=== PATIENT | female | born 1970 | race Caucasian/White ===

== ENCOUNTER 2017-01-06 17:57 | Observation (INO) ==
[2017-01-06] MEDS ORDERED: SODIUM CHLORIDE 0.9% 1,000 ML IV STA (18:47)
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
[2017-01-06 19:07] LABS: Basophils # 0.1 10*3/uL (0.0-0.2); Basophils % 0.2 % (0.0-0.8); Eosinophils # 0.4 10*3/uL (0.0-0.87); Eosinophils % 1.5 % (0.00-10.9); Hematocrit 29.7 VOL% (35.7-47.0); Hemoglobin 9.9 GM/DL (12.0-16.0); Immature Granulocytes Absolute 0.25 #; Lymphocytes # 2.4 10*3/uL (1.4-4.0); Lymphocytes % 9.7 % (21.3-54.2); Mean Corpuscular HGB Conc 33.3 GM/DL (32-36); Mean Corpuscular Hemoglobin 30 PG (27-34); Mean Corpuscular Volume 90.5 FL (87-102); Mean Platelet Volume 9.1 FL (9.6-12.0); Monocytes # 1.7 10*3/uL (0.11-0.8); Monocytes % 7.1 % (1.7-12.7); NRBC # 0.02 10*3/uL; Neutrophils # 19.8 10*3/uL (1.4-7.4); Neutrophils % 80.5 % (38.7-73.9); Platelet Count 457 T/CUMM (130-400); Red Blood Count 3.28 MC/CUMM (3.8-5.5); Red Cell Distribution Width 14.3 % (9.3-17.3); White Blood Count 24.5 T/CUMM (4-12)
[2017-01-06 19:13] LABS: Apearance,Urine CLEAR (Clear); Bilirubin,Urine Negative (Negative); Blood, Urine Negative (Negative); Glucose,Urine (UA) Negative (Negative); Ketones,Urine Negative (Negative); Mucus,Urine Occasional /LPF (Occasional); Nitrite,Urine Negative (Negative); Protein,Urine Negative; RBC,Urine 1 /HPF (0-4); Squamous Epithelial Cell,Urine Occasional /HPF (0-10); Urine Color Yellow (Yellow); Urine Specific Gravity 1.012 (1.001-1.035); Urine Urobilinogen < 2.0 EU/DL (0.2-1.0); WBC,Urine 1 /HPF (0-6)
[2017-01-06 19:24] LABS: Barbiturates Screen,Urine Negative (Negative); Benzodiazepines Screen,Urine Negative (Negative); Cannabinoid Screen,Urine Negative (Negative); Opiate Screen,Urine Negative (Negative); Phencyclidine Screen,Urine Negative (Negative)
[2017-01-06 19:34] LABS: Alanine Aminotransferase 78 U/L (13-56); Albumin 2.3 G/DL (3.4-5.0); Alkaline Phosphatase 423 U/L (45-117); Aspartate Amino Transferase 50 U/L (0-37); Bilirubin,Total < 0.39 MG/DL (0.2-1.0); Blood Urea Nitrogen 8 MG/DL (7-18); Glucose 86 MG/DL (74-106); Magnesium 1.6 MG/DL (1.8-2.4); Osmolality,Calculated 273.5 MOS/KG (273-304); Potassium 3.7 MMOL/L (3.5-5.1); Sodium 139 MMOL/L (136-145)
--- NOTE | 2017-01-06 19:40 | CT Report ---
History is left sided weakness There is a mild anomaly frontal atrophy. There is mild chronic subcortical ischemia in the right frontoparietal region. No acute intracranial hemorrhage or mass effect is seen No acute cortical stroke is seen Impression: 1. Mild predominantly frontal atrophy 2. Chronic subcortical ischemia in the right frontoparietal region The CT exam was performed using one or more of the following dose reduction techniques: Automated exposure control, adjustment of the mA and/or kV according to patient size, or use of iterative reconstruction technique. PROCEDURE INTERPRETED AT [facility] DEPARTMENT OF RADIOLOGY Final Report Signed by: Dr. Kelly Calixto
--- NOTE | 2017-01-06 19:46 | XRay Report ---
Chest, 2 views History is congestion and short of breath The heart is at the upper range normal in size Increased density over the right chest likely related to rotation and overlying soft tissue asymmetry. No consolidated infiltrate is seen. Presumed skin fold overlies the left chest Impression: Borderline heart size PROCEDURE INTERPRETED AT [facility] DEPARTMENT OF RADIOLOGY Final Report Signed by: Dr. Kelly Calixto
--- NOTE | 2017-01-06 19:48 | XRay Report ---
History is abdominal pain There is mildly increased fecal material throughout the colon. Minimal small bowel air present without small bowel dilatation or organomegaly seen Impression: Mildly increased stool throughout the colon PROCEDURE INTERPRETED AT [facility] DEPARTMENT OF RADIOLOGY Final Report Signed by: Dr. Kelly Calixto
[2017-01-06 21:44] LABS: Lymphocytes 15 % (20-55); Platelet Estimate Normal; Segmented Neutrophils 81 % (50-85); Total Cells Counted 100
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
[2017-01-06] MEDS ORDERED: DEXTROSE 50% 25 GM/50 ML VIAL IV PRN (23:03)
[2017-01-06] MEDS ORDERED: GLUCAGON 1 MG VIAL IM PRN (23:03)
[2017-01-06] MEDS: SODIUM CHLORIDE 0.9% 1,000 ML IV SCH (23:14)
[2017-01-06 23:40] LABS: Free T4 (Free Thyroxine) 1.23 NG/DL (0.76-1.46); Thyroid Stimulating Hormone 1.51 uIU/ml (0.358-3.74)
[2017-01-07 00:22] LABS: HIV Antigen/Antibody Result Nonreactive (Nonreactive)
[2017-01-07] MEDS: DIVALPROEX 500 MG TABLET PO SCH ×2 (01:02→09:20)
[2017-01-07] MEDS: traZODone 50 MG TABLET PO SCH ×2 (03:13→22:10)
--- NOTE | 2017-01-07 06:10 | CT Report ---
Referring physician: Jareth Lucero MD EXAM: CT abdomen and pelvis with contrast DATE: January 07, 2017 COMPARISON: None REASON: Leukocytosis, generalized abdominal pain, abnormal liver enzymes Preliminary report was provided by [facility]. TECHNIQUE: Axial images of the abdomen and pelvis were obtained after administration of 100 cc of Omnipaque 350 IV contrast. Coronal and sagittal reformatted images were also provided. Total DLP is 985.8 mGy*cm. FINDINGS: Lower thorax: The visualized lower lung zones are clear. ABDOMEN: Liver: There are a few tiny subcentimeter hypodensities within the right hepatic lobe. They likely represent cysts but are too small to well characterize. Gallbladder and bile ducts: The gallbladder is unremarkable. No biliary duct dilatation is present. Pancreas: Unremarkable. Spleen: Unremarkable. Adrenals: The right adrenal gland is unremarkable. There is a 1.3 cm left adrenal nodule which is difficult to characterize. Follow-up is recommended to confirm a benign process. Kidneys and ureters: No hydronephrosis is present. There is a subcentimeter hypodensity at the upper pole of the right kidney on image 50. It is too small to well characterize but may represent a cyst. The ureters are unremarkable as visualized. PELVIS: Bladder: Unremarkable. Reproductive: Unremarkable as visualized. ABDOMEN AND PELVIS: Bowel: There is no evidence of bowel obstruction. However, there is prominent stool within the colon, which may represent constipation. Appendix: The appendix is unremarkable. Vasculature: The abdominal aorta is normal in size. There is mild calcified plaque at the arteries. Peritoneum/retroperitoneum: No free air or ascites is seen. Lymph nodes: There are a few upper normal size mesenteric lymph nodes within the right lower quadrant. One of these lymph nodes measures 0.7 cm in short axis diameter on image 87. They are nonspecific but may be reactive. Abdominal/pelvic wall: Unremarkable. Bones: There is degenerative change at L5-S1 with disc space narrowing. No acute osseous process is seen. IMPRESSION: 1. There is no evidence of bowel obstruction. However, there is prominent stool within the colon, which could represent constipation. 2. Nonspecific 1.3 cm left adrenal nodule. Follow-up would be helpful to confirm a benign process. 3. There are a few upper normal size mesenteric lymph nodes within the right lower quadrant. They are nonspecific but may be reactive. 4. Probable tiny hepatic and right renal cysts, too small to well characterize. The CT exam was performed using one or more of the following dose reduction techniques: Automated exposure control and adjustment of the mA and/or kV according to patient size. PROCEDURE INTERPRETED AT [facility] DEPARTMENT OF RADIOLOGY Final Report Signed by: Dr. Vicki Schwartz
[2017-01-07] MEDS ORDERED: GLIMEPIRIDE 2 MG TABLET PO SCH (08:00)
--- NOTE | 2017-01-07 12:12 | Hospitalist Progress Note ---
<Lisa Trotter - Last Filed: 01/07/17 12:09> Assessment and Plan (1) Abdominal pain Status: Acute Assessment and plan: CT of the abdomen and pelvis reported no evidence of bowel obstruction however there was a prominent amount of stool noted within the colon which suggested constipation. In addition; there was the presence of a 1.3 cm left adrenal nodule noted, a few upper normal-sized mesenteric lymph nodes within the right upper quadrant and probable tiny hepatic and right renal cyst. We will start a bowel regimen; MiraLAX 17 g daily, lactulose 30 mL twice daily, and milk of mag 30 cc by mouth as needed. Current Visit: Yes (2) Abnormal liver enzymes Status: Acute Assessment and plan: Liver enzymes were elevated at the time of admission; however no labs are available for comparison. Will order stat liver enzymes now and in a.m. Current Visit: Yes (3) Leukocytosis Status: Acute Assessment and plan: Blood cultures were obtained at the time of admission; results are pending. WBCs remain elevated at 24.5. Echocardiogram has been ordered to assess for endocarditis. HIV panel was benign. Empiric antibiotics have been started. We will continue as previously ordered however we will consult infectious disease to evaluate. In addition we will also obtain hepatitis panel for review. Current Visit: Yes Hospitalist: Subjective Interval history: Patient seen and examined; chart reviewed. Remains afebrile. Blood cultures are still pending. WBCs remain grossly elevated at 24.5 this a.m. Exam - Constitutional Vitals: Period Temp Pulse Resp BP Sys/Vail Pulse Ox Last 24 Hr 98 F-98.7 F 95-126 16-20 118-143/71-91 94-100 General appearance: normal weight, no acute distress - Head Head exam: Present: normal inspection, normocephalic, atraumatic - Eye Eye exam: Present: EOMI Pupils: Present: CARLI, normal accommodation - ENT ENT exam: Present: normal exam, normal external ear exam, normal oropharynx - Neck Neck exam: Present: normal inspection. Absent: lymphadenopathy, meningismus, tenderness, thyromegaly - Respiratory Respiratory exam: Present: clear to auscultation bilaterally. Absent: rales, rhonchi, stridor, wheezes - Cardiovascular Cardiovascular exam: Present: regular rate and rhythm. Absent: carotid bruit, diastolic murmur, gallop, JVD, rubs, systolic murmur - GI/Abdominal GI/Abdominal exam: Present: normal bowel sounds, soft - Extremities Exam Extremities exam: Present: normal inspection, normal capillary refill, full ROM , edema - Back Exam Back exam: Present: normal inspection - Neurological Exam Neurological exam: Present: alert, oriented X3, CN II-XII intact - Psychiatric Psychiatric exam: Present: agitated, anxious, flat affect - Skin Skin exam: Present: normal color, warm, dry Results - Labs CBC & BMP: 01/06/17 18:56 01/06/17 18:56 Lab Results: I have reviewed the past 24 hour labs Quality Measures - Stroke Onset of Symptoms Date: 12/30/16 <Sanjana Anderson - Last Filed: 01/07/17 16:48> Hospitalist: Subjective Interval history: Patient seen and examined. She had a bowel movement, and she states that she feels much better. She denies any n/v/fevers/chills. Active Issues: 1. Acute abdominal pain: likely 2nd to constipation. CT showed fecal retention. Given her LFTs and severe leukocytosis, there's a concern for infection. ID was consulted, and no antibiotics were recommended as long as she remains afebrile. Appreciate help. Will monitor. 2. Leukocytosis: significant but improving; afebrile; monitor; may be 2nd to stress reaction from constipation. 3. Elevated LFTs: mild improvement; will give IVFs and continue to monitor; if no improvement on tomorrow, will consult GI 4. Bipolar disorder/mental illness: will go ahead and stop VPA since it can cause hyperammonemia in the setting of liver dysfunction. 5. Heart murmur: await results of echo 6. DM: sugars controlled Exam - Constitutional Vitals: Period Temp Pulse Resp BP Sys/Vail Pulse Ox Last 24 Hr 98 F-98.7 F 95-126 16-20 118-143/71-91 94-100 Results - Labs CBC & BMP: 01/07/17 12:33 01/07/17 12:33
[2017-01-07] MEDS ORDERED: MAGNESIUM HYDROXIDE SUSP 30 ML UDCUP PO PRN (12:22)
[2017-01-07 13:00] LABS: Basophils % 0.2 % (0.0-0.8); Eosinophils # 0.2 10*3/uL (0.0-0.87); Eosinophils % 1.2 % (0.00-10.9); Hematocrit 29.8 VOL% (35.7-47.0); Lymphocytes # 1.9 10*3/uL (1.4-4.0); Lymphocytes % 9.4 % (21.3-54.2); Mean Corpuscular HGB Conc 33.6 GM/DL (32-36); Mean Corpuscular Hemoglobin 30 PG (27-34); Mean Corpuscular Volume 90.3 FL (87-102); Mean Platelet Volume 9.4 FL (9.6-12.0); Monocytes # 1.5 10*3/uL (0.11-0.8); Monocytes % 7.2 % (1.7-12.7); Neutrophils # 16.5 10*3/uL (1.4-7.4); Platelet Count 450 T/CUMM (130-400); Red Cell Distribution Width 14.5 % (9.3-17.3); White Blood Count 20.3 T/CUMM (4-12)
[2017-01-07] MEDS: LACTULOSE 20 GM/30 ML UDCUP PO SCH ×2 (13:08→22:08)
[2017-01-07] MEDS: POLYETHYLENE GLYCOL POWDER 17 GM PACK PO SCH (13:08)
[2017-01-07 13:27] LABS: Alanine Aminotransferase 72 U/L (13-56); Albumin 2.2 G/DL (3.4-5.0); Alkaline Phosphatase 411 U/L (45-117); Aspartate Amino Transferase 37 U/L (0-37); Bilirubin,Direct < 0.10 MG/DL (0.0-0.20); Bilirubin,Indirect 0.3 MG/DL (0.0-1.0); Bilirubin,Total < 0.39 MG/DL (0.2-1.0); Blood Urea Nitrogen 5 MG/DL (7-18); Calcium 8.2 MG/DL (8.5-10.1); Glucose 89 MG/DL (74-106); Magnesium 1.6 MG/DL (1.8-2.4); Osmolality,Calculated 274.4 MOS/KG (273-304); Phosphorous 3.1 MG/DL (2.5-4.9); Potassium 3.8 MMOL/L (3.5-5.1); Sodium 140 MMOL/L (136-145); Total Protein 5.9 G/DL (6.4-8.3)
[2017-01-07 14:17] LABS: Band Neutrophils 3 % (0-10); Burr Cells Few; Eosinophils 1 % (0-10); Lymphocytes 9 % (20-55); Ovalocytes Few; Platelet Estimate Increased; Poikilocytosis 1+; Segmented Neutrophils 77 % (50-85); Tear Drop Cells Few; Total Cells Counted 100
[2017-01-07 14:18] LABS: Hepatitis A Ab IgM Result Negative (Negative); Hepatitis B Core IgM Quant 0.23 Index; Hepatitis B Core IgM Result Negative (Negative); Hepatitis B Surface Ag Quant < 0.10 Index; Hepatitis B Surface Ag Result Negative (Negative); Hepatitis C Virus Ab Quant 0.02 Index; Hepatitis C Virus Ab Result Negative (Negative)
[2017-01-07] MEDS ORDERED: SODIUM PHOSPHATE ENEMA 133 ML BOTTLE RECTAL ONE (15:05)
--- NOTE | 2017-01-07 15:48 | Infectious Disease Consult ---
Assessment and Plan (1) Abdominal pain Status: Acute Assessment and plan: Possibly related to constipation. No acute pathology noted on imaging studies. Monitor. Current Visit: Yes (2) Bipolar disorder Status: Acute Current Visit: Yes (3) Leukocytosis Status: Acute Assessment and plan: Quite significant leukocytosis already improved today. No fever or obvious focus of infection. Recommendations: I agree with monitoring the patient off antibiotic therapy. If she spikes fever then we can start empirically ceftriaxone and vancomycin. Thank you very much for the consult. Will follow. Current Visit: Yes History of Present Illness Chief complaint: Leukocytosis History of present illness: Patient is a very poor historian probably because of her underlying mental illness. Ms. Kennedy is a 46 year old female who is living in a [facility] due to her mental illness. She came to the hospital because of abdominal pain present for several days. She says she has been constipated and has not moved her bowels in several weeks. I am not sure how reliable her history is. She has not had fever all other constitutional symptoms just generalized weakness which the nurses say is so severe that she can barely go to the bathroom without falling she needs assistance going to the bathroom. She was noted to have severe leukocytosis on presentation and I am asked to assist with management. Patient denies cough and shortness of breath, no vomiting only GI symptom is constipation. No dysuria or increased urinary frequency or hematuria. Home Medications Medication Instructions Recorded Confirmed Type Unable To Obtain [Unable to Obtain] 01/07/17 01/07/17 History Allergies Allergy/AdvReac Type Severity Reaction Status Date / Time codeine Allergy Unknown/Unable Verified 01/06/17 23:20 to obtain acetaminophen [From Vicodin] AdvReac ITCHING Verified 01/06/17 18:22 hydrocodone [From Vicodin] AdvReac ITCHING Verified 01/06/17 18:22 12 point system: reviewed and no additional remarkable complaints except as stated (Per HPI) Medical,Surgical,& Family Hx - Medical History Psychological: History of: Psychiatric Problems Neurology: History of: Peripheral Neuropathy Endocrine: History of: Diabetes Mellitus (NIDDM) - Surgical History Reproductive Surgeries: Surgical HX of;: Gynecologic Surgery (reports x 1) - Family History Family History: Reports;: Family Cancer (father), Family Stroke (mother and father) - Social History Smoking Status: Current some day smoker Frequency of Alcohol Use: None Type of Drug Use: None Infectious Disease Exam H&P - Constitutional Vitals: Vital Signs Temp Pulse Resp BP Pulse Ox 98.2 F 96 H 18 125/78 96 01/07/17 11:06 01/07/17 11:06 01/07/17 11:06 01/07/17 11:06 01/07/17 11:06 Intake and Output 01/06/17 01/07/17 01/07/17 23:59 07:59 15:59 Intake Total 360 / 360 1200 / 1200 Balance 360 / 360 1200 / 1200 Intake: Oral 360 / 360 1200 / 1200 Other: Voiding Method Toilet # Voids 2 5 # Bowel Movements 0 Weight 76.067 kg Exam: General: Patient chronically ill-appearing but in no acute distress, her speech is very slow HEENT: Mucous membranes pink and moist, anicteric acyanotic, CARLI, no oropharyngeal exudates Neck: Supple, no thyroid gland enlargement, no lymphadenopathy Respiratory system: Breath sounds vesicular, no crepitations or wheezes Cardiovascular: Normal S1 and S2, no murmurs appreciated Abdomen: Normal bowel sounds, very soft, mild generalized tenderness without guarding or rebound, no organomegaly or mass Genitourinary: No suprapubic pain or bladder distention Extremities: no edema Skin: No rash Reports - Labs CBC & BMP: 01/07/17 12:33 01/07/17 12:33 Labs: Laboratory Results - last 24 hr 01/06/17 01/06/17 01/06/17 18:56 18:56 18:56 WBC 24.5 H RBC 3.28 L Hgb 9.9 L Hct 29.7 L MCV 90.5 MCH 30 MCHC 33.3 RDW 14.3 Plt Count 457 H MPV 9.1 L Neut % (Auto) 80.5 H Lymph % (Auto) 9.7 L [place] % (Auto) 7.1 Eos % (Auto) 1.5 Baso % (Auto) 0.2 Neut # (Auto) 19.8 H Lymph # (Auto) 2.4 [place] # (Auto) 1.7 H Eos # (Auto) 0.4 Baso # (Auto) 0.1 Total Counted 100 Immature Gran % 1.0 Nucleated RBC % 0.1 Immature Gran # 0.25 Segmented Neutrophils 81 Band Neutrophils Lymphocytes 15 L Monocytes 4 Eosinophils Nucleated RBCs # 0.02 Platelet Estimate Normal Poikilocytosis Tear Drop Cells Ovalocytes Kristi Cells ESR Westergren Sodium Potassium Chloride Carbon Dioxide Anion Gap BUN Creatinine GFR Calculation BUN/Creatinine Ratio Glucose POC Glucose Calculated Osmolality Calcium Phosphorus Magnesium Total Bilirubin Direct Bilirubin Indirect Bilirubin AST ALT Alkaline Phosphatase Total Protein Albumin Globulin Albumin/Globulin Ratio Amylase 18 L Lipase Free T4 TSH 3rd Generation Urine Color Yellow Urine Appearance Clear Urine pH 5.0 Ur Specific Pierre 1.012 Urine Protein Negative Urine Glucose (UA) Negative Urine Ketones Negative Urine Blood Negative Urine Nitrate Negative Urine Bilirubin Negative Urine Urobilinogen < 2.0 H Urine Leukocytes Negative Urine RBC 1 Urine WBC 1 Ur Squamous Epith Cells Occasional Urine Mucus Occasional Urine Yeast (Budding) Occasional Ur Culture Indicated? Not indicated Urine Test Negative Urine Opiates Screen Ur Barbiturates Screen Valproic Acid Ur Phencyclidine Scrn U Amphetamine/Methamph U Benzodiazepines Scrn U Cocaine Metab Screen U Cannabinoids Screen Serum Alcohol Treponema pallidum IgG Hepatitis A IgM Ab Hep Bs Antigen Hep B Core IgM Ab Hepatitis C Antibody HIV 1&2 Antigen & Ab 01/06/17 01/06/17 01/06/17 18:56 18:56 18:56 WBC RBC Hgb Hct MCV MCH MCHC RDW Plt Count MPV Neut % (Auto) Lymph % (Auto) [place] % (Auto) Eos % (Auto) Baso % (Auto) Neut # (Auto) Lymph # (Auto) [place] # (Auto) Eos # (Auto) Baso # (Auto) Total Counted Immature Gran % Nucleated RBC % Immature Gran # Segmented Neutrophils Band Neutrophils Lymphocytes Monocytes Eosinophils Nucleated RBCs # Platelet Estimate Poikilocytosis Tear Drop Cells Ovalocytes Weed Cells ESR Westergren Sodium 139 Potassium 3.7 Chloride 104 Carbon Dioxide 26 Anion Gap 12.7 BUN 8 Creatinine 0.50 L GFR Calculation 0 BUN/Creatinine Ratio 16.00 Glucose 86 POC Glucose Calculated Osmolality 273.5 Calcium 8.0 L Phosphorus Magnesium 1.6 L Total Bilirubin < 0.39 Direct Bilirubin Indirect Bilirubin AST 50 H ALT 78 H Alkaline Phosphatase 423 H Total Protein 6.0 L Albumin 2.3 L Globulin 3.7 H Albumin/Globulin Ratio 0.6 L Amylase Lipase 109.0 Free T4 TSH 3rd Generation Urine Color Urine Appearance Urine pH Ur Specific Pierre Urine Protein Urine Glucose (UA) Urine Ketones Urine Blood Urine Nitrate Urine Bilirubin Urine Urobilinogen Urine Leukocytes Urine RBC Urine WBC Ur Squamous Epith Cells Urine Mucus Urine Yeast (Budding) Ur Culture Indicated? Urine Test Urine Opiates Screen Negative Ur Barbiturates Screen Negative Valproic Acid Ur Phencyclidine Scrn Negative U Amphetamine/Methamph Negative U Benzodiazepines Scrn Negative U Cocaine Metab Screen Negative U Cannabinoids Screen Negative Serum Alcohol < 15 L Treponema pallidum IgG Nonreactive Hepatitis A IgM Ab Hep Bs Antigen Hep B Core IgM Ab Hepatitis C Antibody HIV 1&2 Antigen & Ab 01/06/17 01/06/17 01/07/17 18:56 18:56 00:30 WBC RBC Hgb Hct MCV MCH MCHC RDW Plt Count MPV Neut % (Auto) Lymph % (Auto) [place] % (Auto) Eos % (Auto) Baso % (Auto) Neut # (Auto) Lymph # (Auto) [place] # (Auto) Eos # (Auto) Baso # (Auto) Total Counted Immature Gran % Nucleated RBC % Immature Gran # Segmented Neutrophils Band Neutrophils Lymphocytes Monocytes Eosinophils Nucleated RBCs # Platelet Estimate Poikilocytosis Tear Drop Cells Ovalocytes Kristi Cells ESR Westergren 99 H Sodium Potassium Chloride Carbon Dioxide Anion Gap BUN Creatinine GFR Calculation BUN/Creatinine Ratio Glucose POC Glucose Calculated Osmolality Calcium Phosphorus Magnesium Total Bilirubin Direct Bilirubin Indirect Bilirubin AST ALT Alkaline Phosphatase Total Protein Albumin Globulin Albumin/Globulin Ratio Amylase Lipase Free T4 1.23 TSH 3rd Generation 1.510 Urine Color Urine Appearance Urine pH Ur Specific Pierre Urine Protein Urine Glucose (UA) Urine Ketones Urine Blood Urine Nitrate Urine Bilirubin Urine Urobilinogen Urine Leukocytes Urine RBC Urine WBC Ur Squamous Epith Cells Urine Mucus Urine Yeast (Budding) Ur Culture Indicated? Urine Test Urine Opiates Screen Ur Barbiturates Screen Valproic Acid Ur Phencyclidine Scrn U Amphetamine/Methamph U Benzodiazepines Scrn U Cocaine Metab Screen U Cannabinoids Screen Serum Alcohol Treponema pallidum IgG Hepatitis A IgM Ab Hep Bs Antigen Hep B Core IgM Ab Hepatitis C Antibody HIV 1&2 Antigen & Ab Nonreactive 01/07/17 01/07/17 01/07/17 08:43 10:44 12:33 WBC 20.3 H RBC 3.30 L Hgb 10.0 L Hct 29.8 L MCV 90.3 MCH 30 MCHC 33.6 RDW 14.5 Plt Count 450 H MPV 9.4 L Neut % (Auto) 81.0 H Lymph % (Auto) 9.4 L [place] % (Auto) 7.2 Eos % (Auto) 1.2 Baso % (Auto) 0.2 Neut # (Auto) 16.5 H Lymph # (Auto) 1.9 [place] # (Auto) 1.5 H Eos # (Auto) 0.2 Baso # (Auto) 0.0 Total Counted 100 Immature Gran % 1.0 Nucleated RBC % 0.0 Immature Gran # 0.20 Segmented Neutrophils 77 Band Neutrophils 3 Lymphocytes 9 L Monocytes 10 Eosinophils 1 Nucleated RBCs # 0.00 Platelet Estimate Increased Poikilocytosis 1+ Tear Drop Cells Few Ovalocytes Few Kristi Cells Few ESR Wester[place] Sodium Potassium Chloride Carbon Dioxide Anion Gap BUN Creatinine GFR Calculation BUN/Creatinine Ratio Glucose POC Glucose 121 H 90 Calculated Osmolality Calcium Phosphorus Magnesium Total Bilirubin Direct Bilirubin Indirect Bilirubin AST ALT Alkaline Phosphatase Total Protein Albumin Globulin Albumin/Globulin Ratio Amylase Lipase Free T4 TSH 3rd Generation Urine Color Urine Appearance Urine pH Ur Specific Pierre Urine Protein Urine Glucose (UA) Urine Ketones Urine Blood Urine Nitrate Urine Bilirubin Urine Urobilinogen Urine Leukocytes Urine RBC Urine WBC Ur Squamous Epith Cells Urine Mucus Urine Yeast (Budding) Ur Culture Indicated? Urine Test Urine Opiates Screen Ur Barbiturates Screen Valproic Acid Ur Phencyclidine Scrn U Amphetamine/Methamph U Benzodiazepines Scrn U Cocaine Metab Screen U Cannabinoids Screen Serum Alcohol Treponema pallidum IgG Hepatitis A IgM Ab Hep Bs Antigen Hep B Core IgM Ab Hepatitis C Antibody HIV 1&2 Antigen & Ab 01/07/17 01/07/17 01/07/17 12:33 12:33 12:33 WBC RBC Hgb Hct MCV MCH MCHC RDW Plt Count MPV Neut % (Auto) Lymph % (Auto) [place] % (Auto) Eos % (Auto) Baso % (Auto) Neut # (Auto) Lymph # (Auto) [place] # (Auto) Eos # (Auto) Baso # (Auto) Total Counted Immature Gran % Nucleated RBC % Immature Gran # Segmented Neutrophils Band Neutrophils Lymphocytes Monocytes Eosinophils Nucleated RBCs # Platelet Estimate Poikilocytosis Tear Drop Cells Ovalocytes Weed Cells ESR [place]gren Sodium 140 Potassium 3.8 Chloride 104 Carbon Dioxide 25 Anion Gap 14.8 BUN 5 L Creatinine 0.50 L GFR Calculation 119 BUN/Creatinine Ratio 10.00 Glucose 89 POC Glucose Calculated Osmolality 274.4 Calcium 8.2 L Phosphorus 3.1 Magnesium 1.6 L Total Bilirubin < 0.39 Direct Bilirubin < 0.10 Indirect Bilirubin 0.3 AST 37 ALT 72 H Alkaline Phosphatase 411 H Total Protein 5.9 L Albumin 2.2 L Globulin 3.7 H Albumin/Globulin Ratio 0.5 L Amylase Lipase Free T4 TSH 3rd Generation Urine Color Urine Appearance Urine pH Ur Specific [place] Urine Protein Urine Glucose (UA) Urine Ketones Urine Blood Urine Nitrate Urine Bilirubin Urine Urobilinogen Urine Leukocytes Urine RBC Urine WBC Ur Squamous Epith Cells Urine Mucus Urine Yeast (Budding) Ur Culture Indicated? Urine Test Urine Opiates Screen Ur Barbiturates Screen Valproic Acid 74.0 Ur Phencyclidine Scrn U Amphetamine/Methamph U Benzodiazepines Scrn U Cocaine Metab Screen U Cannabinoids Screen Serum Alcohol Treponema pallidum IgG Hepatitis A IgM Ab Negative Hep Bs Antigen Negative Hep B Core IgM Ab Negative Hepatitis C Antibody Negative HIV 1&2 Antigen & Ab - Diagnostic Findings Procedure: Chest x-ray: report reviewed by me (No acute pathology), CT Abdomen and Pelvis: report reviewed by me (Increased stool in colon but no other acute pathology), CT: report reviewed by me (CT head unremarkable), X-ray: report reviewed by me (Abdominal x-ray unremarkable)
[2017-01-07] MEDS ORDERED: MAGNESIUM SULF RIDER 2 GM in PREMIX 1 EACH IV PRN (17:28)
[2017-01-07] MEDS ORDERED: MAGNESIUM SULF RIDER 4 GM in PREMIX 1 EACH IV PRN (17:28)
--- NOTE | 2017-01-07 18:09 | ECHO Report ---
Alycia Kennedy Exam Date: 01/07/2017 10:09 Referring Physician: Technologist: Florencia Ni Age: 46 Ht (in): 62 Wt (lb): 200 Gender: F Exam Location: [facility] Echo Indications: abn. liver enymes, tachycardia, bipolor disorder, leukocytosis, abd. pain, heart murmur BP: 135 / 71 HR: 95 Rhythm: Sinus Technical Quality: IMPRESSIONS 1. Left ventricle is normal size systolic function ejection fraction 50+%. There are no segmental wall motion normality's. There is mild concentric left ventricular hypertrophy at worst. 2. Other cardiac chambers normal size. 3. Valvular structures are anatomically functionally normal. 4. Overall this is an unremarkable study. MEASUREMENTS (Male / Female) Normal Values 2D ECHO LV Diastolic Diameter PLAX 3.9 cm 4.2 - 5.9 / 3.9 - 5.3 cm LV Systolic Diameter PLAX 2.1 cm LV Fractional Shortening PLAX 45.5 % IVS Diastolic Thickness 1.1 cm 0.6 - 1.0 / 0.6 - 0.9 cm LVPW Diastolic Thickness 1.2 cm 0.6 - 1.0 / 0.6 - 0.9 cm RV Internal Dim ED PLAX 2.3 cm Aortic Root Diameter 2.6 cm LA Systolic Diameter LX 3.0 cm 3.0 - 4.0 / 2.7 - 3.8 cm DOPPLER TR Peak Velocity 167.0 cm/s TR Peak Gradient 11.2 mmHg FINDINGS Left Ventricle Left ventricle is normal size and systolic function with ejection fraction of 60+%. There are no segmental wall motion normality's. It worse there may be some mild concentric left ventricular hypertrophy. Right Ventricle Normal right ventricular size. Right Atrium Normal right atrial size. Left Atrium Normal left atrial size. Mitral Valve Mitral valve is anatomically function normal without Doppler normality's. Aortic Valve Aortic valve the tricuspid structure and anatomically functionally normal. There is no new stenosis or regurgitation noted. Tricuspid Valve Morphologically normal tricuspid valve. Trace to mild tricuspid valve regurgitation. Tricuspid regurgitation velocities suggest a PAP of 21 mmHg. Pulmonic Valve Morphologically normal pulmonic valve. Trace pulmonary valve regurgitation. Pericardium Trivial pericardial effusion. Aorta Normal size aortic root and proximal ascending aorta. Kermit Boothe MD (Electronically Signed) Final Date: 07 January 2017 18:08
[2017-01-07] MEDS: SODIUM CHLORIDE 0.9% 1,000 ML IV SCH ×2 (18:19)
[2017-01-07] MEDS: LORazepam 2 MG/1 ML VIAL IV PRN (22:43)
[2017-01-08] MEDS: SODIUM CHLORIDE 0.9% 1,000 ML IV SCH (03:54)
[2017-01-08 06:00] LABS: Basophils % 0.2 % (0.0-0.8); Eosinophils # 0.2 10*3/uL (0.0-0.87); Eosinophils % 2.1 % (0.00-10.9); Hematocrit 28.1 VOL% (35.7-47.0); Hemoglobin 9.2 GM/DL (12.0-16.0); Immature Granulocytes % 0.7 %; Immature Granulocytes Absolute 0.08 #; Lymphocytes # 1.5 10*3/uL (1.4-4.0); Lymphocytes % 13.5 % (21.3-54.2); Mean Corpuscular HGB Conc 32.7 GM/DL (32-36); Mean Corpuscular Hemoglobin 30 PG (27-34); Mean Corpuscular Volume 90.6 FL (87-102); Mean Platelet Volume 9.3 FL (9.6-12.0); Monocytes # 1.1 10*3/uL (0.11-0.8); Monocytes % 9.5 % (1.7-12.7); Neutrophils # 8.3 10*3/uL (1.4-7.4); Platelet Count 403 T/CUMM (130-400); Red Cell Distribution Width 14.6 % (9.3-17.3); White Blood Count 11.3 T/CUMM (4-12)
[2017-01-08 06:24] LABS: Band Neutrophils 1 % (0-10); Eosinophils 4 % (0-10); Hypochromasia 1+; Lymphocytes 15 % (20-55); Myelocytes 1 %; Platelet Estimate Adequate; Segmented Neutrophils 69 % (50-85); Total Cells Counted 100
[2017-01-08 06:36] LABS: Alanine Aminotransferase 59 U/L (13-56); Alkaline Phosphatase 377 U/L (45-117); Aspartate Amino Transferase 31 U/L (0-37); Bilirubin,Total < 0.39 MG/DL (0.2-1.0); Blood Urea Nitrogen 4 MG/DL (7-18); Calcium 7.8 MG/DL (8.5-10.1); Glucose 80 MG/DL (74-106); Magnesium 2.2 MG/DL (1.8-2.4); Osmolality,Calculated 278.1 MOS/KG (273-304); Phosphorous 3.3 MG/DL (2.5-4.9); Potassium 3.7 MMOL/L (3.5-5.1); Sodium 142 MMOL/L (136-145); Total Protein 5.4 G/DL (6.4-8.3)
[2017-01-08] MEDS: POLYETHYLENE GLYCOL POWDER 17 GM PACK PO SCH (08:53)
[2017-01-08] MEDS: LACTULOSE 20 GM/30 ML UDCUP PO SCH (08:53)
--- NOTE | 2017-01-08 10:58 | Hospitalist Progress Note ---
<Lisa Trotter - Last Filed: 01/08/17 10:56> Assessment and Plan (1) Abdominal pain Status: Acute Assessment and plan: CT of the abdomen and pelvis reported no evidence of bowel obstruction however there was a prominent amount of stool noted within the colon which suggested constipation. In addition; there was the presence of a 1.3 cm left adrenal nodule noted, a few upper normal-sized mesenteric lymph nodes within the right upper quadrant and probable tiny hepatic and right renal cyst. We will start a bowel regimen; MiraLAX 17 g daily, lactulose 30 mL twice daily, and milk of mag 30 cc by mouth as needed. 01/08-Nursing staff reports multiple bowel movements on yesterday and this morning. Current Visit: Yes (2) Abnormal liver enzymes Status: Acute Assessment and plan: Liver enzymes were elevated at the time of admission; however no labs are available for comparison. Will order stat liver enzymes now and in a.m. 01/08-liver enzymes notably decreased from results on yesterday; a LT noted at 59 , alkaline phosphatase at 377, total protein 5.4, total bilirubin less than 0.39. On yesterday ALT was noted at 72, alkaline phosphatase at 411, and total bilirubin less than 0.39. Will recheck labs in a.m. Current Visit: Yes (3) Leukocytosis Status: Acute Assessment and plan: Blood cultures were obtained at the time of admission; results are pending. WBCs remain elevated at 24.5. Echocardiogram has been ordered to assess for endocarditis. HIV panel was benign. Empiric antibiotics have been started. We will continue as previously ordered however we will consult infectious disease to evaluate. In addition we will also obtain hepatitis panel for review. 01/08-seen by infectious disease on yesterday, agree with plan to hold empiric antibiotics for now. WBCs are trending down noted at 11.3 today; great improvement from yesterday which was noted at 20.3. We will continue to monitor. Hepatitis panel was essentially negative Current Visit: Yes (4) Bipolar disorder Status: Acute Assessment and plan: The patient's condition has greatly improved. Her WBCs are normal. Her vital signs are stable. We will consult case management and request an [facility] evaluation for placement at discharge. Current Visit: Yes Hospitalist: Subjective Interval history: Patient seen and examined; chart reviewed. Patient became rather restless last night required one-to-one supervision for safety. Seen by infectious disease on yesterday; they will monitor remotely during the clinical encounter. WBCs have trended down noted at 11.3 today down from 20.3 on yesterday and 24.5 at the time of admission. Exam - Constitutional Vitals: Period Temp Pulse Resp BP Sys/[place] Pulse Ox Last 24 Hr 97.3 F-99.2 F 84-110 18-20 109-140/68-79 94-96 General appearance: normal weight, no acute distress - Head Head exam: Present: normal inspection, normocephalic - Eye Eye exam: Present: EOMI, conjunctival injection Pupils: Present: CARLI, normal accommodation - ENT ENT exam: Present: normal exam, normal external ear exam, normal oropharynx - Neck Neck exam: Present: normal inspection. Absent: lymphadenopathy, meningismus, tenderness, thyromegaly - Respiratory Respiratory exam: Present: clear to auscultation bilaterally. Absent: rales, rhonchi, stridor, wheezes - Cardiovascular Cardiovascular exam: Absent: carotid bruit, diastolic murmur, gallop, JVD, rubs , systolic murmur - GI/Abdominal GI/Abdominal exam: Present: normal bowel sounds, tenderness, soft - Extremities Exam Extremities exam: Present: normal inspection, normal capillary refill, full ROM. Absent: calf tenderness, edema - Back Exam Back exam: Present: normal inspection - Neurological Exam Neurological exam: Present: alert, oriented X3, CN II-XII intact - Psychiatric Psychiatric exam: Present: agitated, anxious, flat affect - Skin Skin exam: Present: normal color, warm, dry Results - Labs CBC & BMP: 01/08/17 05:33 01/08/17 05:33 Lab Results: I have reviewed the past 24 hour labs Quality Measures - Stroke Onset of Symptoms Date: 12/30/16 <Sanjana Anderson - Last Filed: 01/08/17 14:06> Hospitalist: Subjective Interval history: Patient has been seen and examined. She is hemodynamically and clinically stable. Constipation has resolved. I have reviewed the progress note by ILENE Trotter, and I agree with the documentation to include the assessment and plan. Active Issues: 1. Acute abdominal pain: likely 2nd to constipation; resolved 2. Leukocytosis: resolving; likely 2nd to stress reaction; afebrile; being followed by ID; no antibiotics required at this time 3. Elevated LFTs: improvement; continue to monitor 4. Bipolar disorder/mental illness: seems to be stable; stopped VPA because of hepatic dysfunction 5. Heart murmur: echo normal 6. DM: sugars controlled 7. Tobacco use: nicotine patch 8. Diposition: consult SW for placement to [facility] Exam - Constitutional Vitals: Period Temp Pulse Resp BP Sys/[place] Pulse Ox Last 24 Hr 97.3 F-99.2 F 84-110 20-20 109-140/68-79 94-96 Results - Labs CBC & BMP: 01/08/17 05:33 01/08/17 05:33
[2017-01-08] MEDS: NICOTINE 21 MG/24 HR PATCH TRANSDERM SCH (11:10)
[2017-01-08] MEDS: LORazepam 2 MG/1 ML VIAL IV PRN (14:58)
--- NOTE | 2017-01-08 17:13 | Infectious Disease Progress ---
Assessment and Plan (1) Abdominal pain Status: Acute Assessment and plan: Possibly related to constipation, much improved today since she moved her bowels. Current Visit: Yes (2) Bipolar disorder Status: Acute Current Visit: Yes (3) Leukocytosis Status: Acute Assessment and plan: This is resolved today. No infection identified. Was probably a stress response. Continue off antibiotics. I will sign off now. Call again as needed. Current Visit: Yes Infectious Disease - PN: Subj Interval history: Feeling better today, little stronger. Finally moved her bowels after being given a stool softener yesterday. Infectious Disease Exam (PN) - Constitutional Vitals: Temp Pulse Resp BP Pulse Ox 97.7 F 103 H 20 143/83 95 01/08/17 16:00 01/08/17 16:00 01/08/17 16:00 01/08/17 16:00 01/08/17 16:00 General appearance: normal weight, no acute distress Exam: General appearance: no acute distress, looks a little better today - Eye Eye exam: Present: EOMI. no icterus Pupils: Present: CARLI - ENT ENT exam: no oral exudates - Respiratory Respiratory exam: vesicular BS, no crepitations or wheezes - Cardiovascular Cardiovascular exam: regular rate and rhythm, no murmurs - GI/Abdominal GI/Abdominal exam: normal bowel sounds, soft, non-tender, no organomegaly or mass - Extremities Exam Extremities exam: no edema - Skin Skin exam: no rash Results - Labs CBC & BMP: 01/08/17 05:33 01/08/17 05:33 Lab Results: I have reviewed the past 24 hour labs (Cultures of blood negative to date) Quality Measures - Stroke Onset of Symptoms Date: 12/30/16
[2017-01-08] MEDS: diphenhydrAMINE 50 MG/1 ML VIAL IV PRN (19:10)
[2017-01-08] MEDS: traZODone 50 MG TABLET PO SCH (21:00)
[2017-01-09] MEDS: LORazepam 2 MG/1 ML VIAL IV PRN ×2 (01:05→16:20)
[2017-01-09] MEDS: LACTULOSE 20 GM/30 ML UDCUP PO SCH ×3 (01:12→20:23)
[2017-01-09 02:57] LABS: Basophils % 0.2 % (0.0-0.8); Eosinophils # 0.3 10*3/uL (0.0-0.87); Eosinophils % 2.3 % (0.00-10.9); Hematocrit 28.3 VOL% (35.7-47.0); Hemoglobin 9.2 GM/DL (12.0-16.0); Immature Granulocytes % 0.7 %; Immature Granulocytes Absolute 0.09 #; Lymphocytes # 1.5 10*3/uL (1.4-4.0); Lymphocytes % 11.9 % (21.3-54.2); Mean Corpuscular HGB Conc 32.5 GM/DL (32-36); Mean Corpuscular Hemoglobin 30 PG (27-34); Mean Corpuscular Volume 90.7 FL (87-102); Mean Platelet Volume 9.4 FL (9.6-12.0); Monocytes # 1.3 10*3/uL (0.11-0.8); Monocytes % 10.2 % (1.7-12.7); Neutrophils # 9.2 10*3/uL (1.4-7.4); Neutrophils % 74.7 % (38.7-73.9); Platelet Count 408 T/CUMM (130-400); Red Blood Count 3.12 MC/CUMM (3.8-5.5); Red Cell Distribution Width 14.7 % (9.3-17.3); White Blood Count 12.3 T/CUMM (4-12)
[2017-01-09 03:23] LABS: Alanine Aminotransferase 51 U/L (13-56); Albumin 1.9 G/DL (3.4-5.0); Alkaline Phosphatase 371 U/L (45-117); Aspartate Amino Transferase 29 U/L (0-37); Bilirubin,Total < 0.39 MG/DL (0.2-1.0); Blood Urea Nitrogen 4 MG/DL (7-18); Calcium 7.8 MG/DL (8.5-10.1); Glucose 107 MG/DL (74-106); Magnesium 1.8 MG/DL (1.8-2.4); Osmolality,Calculated 277.3 MOS/KG (273-304); Phosphorous 2.4 MG/DL (2.5-4.9); Potassium 3.4 MMOL/L (3.5-5.1); Sodium 141 MMOL/L (136-145); Total Protein 5.1 G/DL (6.4-8.3)
[2017-01-09 03:48] LABS: Platelet Estimate Normal
[2017-01-09] MEDS ORDERED: POTASSIUM CHLORIDE RIDER 10 MEQ in PREMIX 1 EACH IV PRN (07:13)
[2017-01-09] MEDS ORDERED: NICOTINE 21 MG/24 HR PATCH TRANSDERM SCH (09:00)
[2017-01-09] MEDS ORDERED: POTASSIUM CHLORIDE 20 MEQ TABLET PO ONE (09:25)
[2017-01-09] MEDS ORDERED: ZINC OXIDE 16% PASTE 57 GM TUBE TOP PRN (09:26)
[2017-01-09] MEDS: NICOTINE 21 MG/24 HR PATCH TRANSDERM SCH (10:07)
[2017-01-09] MEDS: POLYETHYLENE GLYCOL POWDER 17 GM PACK PO SCH (10:07)
--- NOTE | 2017-01-09 12:05 | Hospitalist Progress Note ---
<Lisa Trotter - Last Filed: 01/09/17 12:03> Assessment and Plan (1) Abdominal pain Status: Acute Assessment and plan: CT of the abdomen and pelvis reported no evidence of bowel obstruction however there was a prominent amount of stool noted within the colon which suggested constipation. In addition; there was the presence of a 1.3 cm left adrenal nodule noted, a few upper normal-sized mesenteric lymph nodes within the right upper quadrant and probable tiny hepatic and right renal cyst. We will start a bowel regimen; MiraLAX 17 g daily, lactulose 30 mL twice daily, and milk of mag 30 cc by mouth as needed. 01/08-Nursing staff reports multiple bowel movements on yesterday and this morning. 01/09-no complaints of abdominal pain; multiple bowel movements overnight. Current Visit: Yes (2) Abnormal liver enzymes Status: Acute Assessment and plan: Liver enzymes were elevated at the time of admission; however no labs are available for comparison. Will order stat liver enzymes now and in a.m. 01/08-liver enzymes notably decreased from results on yesterday; a LT noted at 59 , alkaline phosphatase at 377, total protein 5.4, total bilirubin less than 0.39. On yesterday ALT was noted at 72, alkaline phosphatase at 411, and total bilirubin less than 0.39. Will recheck labs in a.m. 01/09-liver enzymes continue to improve, AST noted at 29, ALT at 5.1, alkaline phosphatase 371, total protein at 5.1, albumin at 1.9. We will continue to monitor. Will recheck labs in a.m. Current Visit: Yes (3) Leukocytosis Status: Acute Assessment and plan: Blood cultures were obtained at the time of admission; results are pending. WBCs remain elevated at 24.5. Echocardiogram has been ordered to assess for endocarditis. HIV panel was benign. Empiric antibiotics have been started. We will continue as previously ordered however we will consult infectious disease to evaluate. In addition we will also obtain hepatitis panel for review. 01/08-seen by infectious disease on yesterday, agree with plan to hold empiric antibiotics for now. WBCs are trending down noted at 11.3 today; great improvement from yesterday which was noted at 20.3. We will continue to monitor. Hepatitis panel was essentially negative. 01/09-WBCs were noted at 12.3 today. No obvious signs of infection. We agree with infectious disease to hold empiric antibiotics for now. Current Visit: Yes (4) Bipolar disorder Status: Acute Assessment and plan: The patient's condition has greatly improved. Her WBCs are normal. Her vital signs are stable. We will consult case management and request an [facility] evaluation for placement at discharge. 01/09-[place] is present on the unit. They will evaluate for possible placement at the time of discharge. Current Visit: Yes Hospitalist: Subjective Interval history: Patient seen and examined; chart reviewed. No significant overnight events reported. Remains on one-to-one observation for safety; [place] present on unit at the time of encounter. [place] to assess for appropriateness for inpatient psychiatric treatment. Exam - Constitutional Vitals: Period Temp Pulse Resp BP Sys/[place] Pulse Ox Last 24 Hr 97.4 F-98.7 F 18-103 18-20 123-149/62-83 95-100 General appearance: normal weight, no acute distress - Head Head exam: Present: normal inspection, normocephalic, atraumatic - Eye Eye exam: Present: EOMI. Absent: conjunctival injection Pupils: Present: CARLI, normal accommodation - ENT ENT exam: Present: normal exam, normal external ear exam, normal oropharynx - Neck Neck exam: Present: normal inspection. Absent: lymphadenopathy, meningismus, tenderness, thyromegaly - Respiratory Respiratory exam: Present: clear to auscultation bilaterally. Absent: accessory muscle use, rales, rhonchi, stridor, wheezes - Cardiovascular Cardiovascular exam: Present: regular rate and rhythm. Absent: carotid bruit, diastolic murmur, gallop, JVD, rubs, systolic murmur - GI/Abdominal GI/Abdominal exam: Present: normal bowel sounds, soft. Absent: tenderness - Extremities Exam Extremities exam: Present: normal inspection, normal capillary refill, full ROM. Absent: edema - Back Exam Back exam: Present: normal inspection - Neurological Exam Neurological exam: Present: alert, altered (Intermittent confusion) - Psychiatric Psychiatric exam: Present: anxious (Impulsive and anxious.) - Skin Skin exam: Present: normal color, warm, dry Results - Labs CBC & BMP: 01/09/17 02:18 01/09/17 02:18 Lab Results: I have reviewed the past 24 hour labs Quality Measures - Stroke Onset of Symptoms Date: 12/30/16 <Ro Zamarripa - Last Filed: 01/09/17 13:09> Hospitalist: Subjective Interval history: Patient seen and examined. We are waiting to hear from psych for possible transfer. Exam - Constitutional Vitals: Period Temp Pulse Resp BP Sys/[place] Pulse Ox Last 24 Hr 97.4 F-98.7 F 18-103 18-20 123-149/62-83 95-100 Results - Labs CBC & BMP: 01/09/17 02:18 01/09/17 02:18
[2017-01-09] MEDS ORDERED: TUBERCULIN SKIN TEST 0.1 ML SYRINGE INTRADERM ONE (15:00)
[2017-01-09] MEDS: traZODone 50 MG TABLET PO SCH (20:23)
[2017-01-10] MEDS: LORazepam 2 MG/1 ML VIAL IV PRN ×3 (00:32→20:05)
[2017-01-10 05:23] LABS: Basophils % 0.3 % (0.0-0.8); Eosinophils # 0.2 10*3/uL (0.0-0.87); Eosinophils % 2.4 % (0.00-10.9); Hematocrit 30.8 VOL% (35.7-47.0); Hemoglobin 10.1 GM/DL (12.0-16.0); Immature Granulocytes % 0.7 %; Immature Granulocytes Absolute 0.07 #; Lymphocytes # 1.4 10*3/uL (1.4-4.0); Lymphocytes % 14.2 % (21.3-54.2); Mean Corpuscular HGB Conc 32.8 GM/DL (32-36); Mean Corpuscular Hemoglobin 30 PG (27-34); Mean Corpuscular Volume 90.6 FL (87-102); Mean Platelet Volume 9.2 FL (9.6-12.0); Monocytes # 0.9 10*3/uL (0.11-0.8); Monocytes % 8.9 % (1.7-12.7); Neutrophils # 7.1 10*3/uL (1.4-7.4); Neutrophils % 73.5 % (38.7-73.9); Platelet Count 437 T/CUMM (130-400); Red Cell Distribution Width 15.1 % (9.3-17.3); White Blood Count 9.7 T/CUMM (4-12)
[2017-01-10 05:47] LABS: Eosinophils 3 % (0-10); Lymphocytes 22 % (20-55); Segmented Neutrophils 63 % (50-85); Total Cells Counted 100
[2017-01-10 05:48] LABS: Platelet Estimate Normal
[2017-01-10 05:53] LABS: Albumin 2.1 G/DL (3.4-5.0); Bilirubin,Total 0.5 MG/DL (0.2-1.0); Calcium 8.3 MG/DL (8.5-10.1); Magnesium 1.8 MG/DL (1.8-2.4); Osmolality,Calculated 277.3 MOS/KG (273-304); Phosphorous 3.6 MG/DL (2.5-4.9); Potassium 3.9 MMOL/L (3.5-5.1); Total Protein 5.5 G/DL (6.4-8.3)
--- NOTE | 2017-01-10 09:26 | Hospitalist Progress Note ---
<Lisa Trotter - Last Filed: 01/10/17 09:23> Assessment and Plan (1) Abdominal pain Status: Acute Assessment and plan: CT of the abdomen and pelvis reported no evidence of bowel obstruction however there was a prominent amount of stool noted within the colon which suggested constipation. In addition; there was the presence of a 1.3 cm left adrenal nodule noted, a few upper normal-sized mesenteric lymph nodes within the right upper quadrant and probable tiny hepatic and right renal cyst. We will start a bowel regimen; MiraLAX 17 g daily, lactulose 30 mL twice daily, and milk of mag 30 cc by mouth as needed. 01/08-Nursing staff reports multiple bowel movements on yesterday and this morning. 01/09-no complaints of abdominal pain; multiple bowel movements overnight. 01/10-no significant overnight events. Current Visit: Yes (2) Abnormal liver enzymes Status: Acute Assessment and plan: Liver enzymes were elevated at the time of admission; however no labs are available for comparison. Will order stat liver enzymes now and in a.m. 01/08-liver enzymes notably decreased from results on yesterday; a LT noted at 59 , alkaline phosphatase at 377, total protein 5.4, total bilirubin less than 0.39. On yesterday ALT was noted at 72, alkaline phosphatase at 411, and total bilirubin less than 0.39. Will recheck labs in a.m. 01/09-liver enzymes continue to improve, AST noted at 29, ALT at 5.1, alkaline phosphatase 371, total protein at 5.1, albumin at 1.9. We will continue to monitor. Will recheck labs in a.m. 01/10-ALT noted at 63, AST at 42, alkaline phosphatase at 418, total protein 5.5. We will monitor closely we will recheck in a.m. Current Visit: Yes (3) Leukocytosis Status: Acute Assessment and plan: Blood cultures were obtained at the time of admission; results are pending. WBCs remain elevated at 24.5. Echocardiogram has been ordered to assess for endocarditis. HIV panel was benign. Empiric antibiotics have been started. We will continue as previously ordered however we will consult infectious disease to evaluate. In addition we will also obtain hepatitis panel for review. 01/08-seen by infectious disease on yesterday, agree with plan to hold empiric antibiotics for now. WBCs are trending down noted at 11.3 today; great improvement from yesterday which was noted at 20.3. We will continue to monitor. Hepatitis panel was essentially negative. 01/09-WBCs were noted at 12.3 today. No obvious signs of infection. We agree with infectious disease to hold empiric antibiotics for now. 01/10-WBCs normalized at 9.7 today. Current Visit: Yes (4) Bipolar disorder Status: Acute Assessment and plan: The patient's condition has greatly improved. Her WBCs are normal. Her vital signs are stable. We will consult case management and request an [facility] evaluation for placement at discharge. 01/09-[place] is present on the unit. They will evaluate for possible placement at the time of discharge. 01/10-the patient was evaluated by darrin on yesterday and deemed an appropriate for inpatient admission at this time. We will restart consult social media intern to assess available options for the patient for pending discharge. Current Visit: Yes Hospitalist: Subjective Interval history: Patient seen and examined; no significant events reported overnight. Remains on one-to-one observation for safety. Seen by darrin on yesterday, however she was deemed in appropriate for inpatient admission. Will reconsult social media intern for possible swing bed placement. Exam - Constitutional Vitals: Period Temp Pulse Resp BP Sys/[place] Pulse Ox Last 24 Hr 96.5 F-98.5 F 87-111 16-18 135-144/66-82 96-98 General appearance: normal weight - Head Head exam: Present: normal inspection, normocephalic, atraumatic - Eye Eye exam: Present: EOMI. Absent: conjunctival injection Pupils: Present: CARLI, normal accommodation - ENT ENT exam: Present: normal exam, normal external ear exam, normal oropharynx - Neck Neck exam: Present: normal inspection. Absent: lymphadenopathy, meningismus, tenderness, thyromegaly - Respiratory Respiratory exam: Present: clear to auscultation bilaterally. Absent: rales, rhonchi, stridor, wheezes - Cardiovascular Cardiovascular exam: Present: regular rate and rhythm. Absent: carotid bruit, diastolic murmur, gallop, JVD, rubs, systolic murmur - GI/Abdominal GI/Abdominal exam: Present: normal bowel sounds, soft - Extremities Exam Extremities exam: Present: normal inspection, normal capillary refill, full ROM. 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 Exam - Constitutional Vitals: Period Temp Pulse Resp BP Sys/[place] Pulse Ox Last 24 Hr 96.5 F-98.5 F 87-114 16-18 124-146/66-84 96-98 Results - Labs CBC & BMP: 01/10/17 04:37 01/10/17 04:37
[2017-01-10] MEDS: NICOTINE 21 MG/24 HR PATCH TRANSDERM SCH (09:50)
[2017-01-10] MEDS: LACTULOSE 20 GM/30 ML UDCUP PO SCH (09:50)
[2017-01-10] MEDS: POLYETHYLENE GLYCOL POWDER 17 GM PACK PO SCH (09:51)
[2017-01-10] MEDS: traZODone 50 MG TABLET PO SCH (20:20)
[2017-01-11] MEDS: LORazepam 2 MG/1 ML VIAL IV PRN ×3 (02:38→17:35)
[2017-01-11 07:26] LABS: Basophils % 0.3 % (0.0-0.8); Eosinophils # 0.2 10*3/uL (0.0-0.87); Eosinophils % 2.6 % (0.00-10.9); Hematocrit 32.4 VOL% (35.7-47.0); Hemoglobin 10.9 GM/DL (12.0-16.0); Immature Granulocytes % 0.4 %; Immature Granulocytes Absolute 0.04 #; Lymphocytes # 1.7 10*3/uL (1.4-4.0); Lymphocytes % 17.8 % (21.3-54.2); Mean Corpuscular HGB Conc 33.6 GM/DL (32-36); Mean Corpuscular Hemoglobin 30 PG (27-34); Mean Platelet Volume 8.8 FL (9.6-12.0); Monocytes # 1.1 10*3/uL (0.11-0.8); Monocytes % 11.5 % (1.7-12.7); Neutrophils # 6.3 10*3/uL (1.4-7.4); Neutrophils % 67.4 % (38.7-73.9); Platelet Count 469 T/CUMM (130-400); Red Blood Count 3.64 MC/CUMM (3.8-5.5); White Blood Count 9.3 T/CUMM (4-12)
[2017-01-11 08:04] LABS: Alanine Aminotransferase 89 U/L (13-56); Albumin 2.3 G/DL (3.4-5.0); Alkaline Phosphatase 480 U/L (45-117); Aspartate Amino Transferase 68 U/L (0-37); Bilirubin,Total < 0.39 MG/DL (0.2-1.0); Blood Urea Nitrogen 7 MG/DL (7-18); Calcium 8.4 MG/DL (8.5-10.1); Glucose 90 MG/DL (74-106); Magnesium 1.7 MG/DL (1.8-2.4); Osmolality,Calculated 272.7 MOS/KG (273-304); Phosphorous 4.1 MG/DL (2.5-4.9); Potassium 3.9 MMOL/L (3.5-5.1); Sodium 138 MMOL/L (136-145); Total Protein 6.1 G/DL (6.4-8.3)
--- NOTE | 2017-01-11 08:09 | Case Mgmt Physician Query Form ---
TB Signs and Symptoms Screening ([place]) INSTRUCTIONS: To be completed annually on residents/staff with a significant Tuberculin Skin Test (TST) upon admission/hire or a prior significant TST. To be completed on all staff at hire. Please respond to each listed symptom with an (X) in either the "YES" or "NO" box. Do you currently have any of the following symptoms: YES NO ( ) (x ) A cough If yes, is it: ( ) Productive ( ) Non- productive ( ) ( x) Hemoptysis (spitting up blood) ( ) (x ) Chest pains ( ) (x ) Weight Loss ( ) (x ) Fever ( ) (x ) Night Sweats ( ) (x ) Weakness ( ) (x ) Loss of Appetite ( ) (x ) Difficulty Breathing If you answered YES" to any of the above questions, how long have symptoms been present? Comments: If you have any questions, please contact me . Thank you, Liliana HERNANDEZ Email: [email or web address]
[2017-01-11 08:10] LABS: Macrocytosis 1+; Polychromasia Slight; Target Cells Slight
[2017-01-11] MEDS: diphenhydrAMINE 50 MG/1 ML VIAL IV PRN ×2 (10:31→17:35)
[2017-01-11] MEDS: NICOTINE 21 MG/24 HR PATCH TRANSDERM SCH (10:32)
--- NOTE | 2017-01-11 12:49 | Hospitalist Progress Note ---
<Lisa Trotter - Last Filed: 01/11/17 12:50> Assessment and Plan (1) Abdominal pain Status: Acute Assessment and plan: CT of the abdomen and pelvis reported no evidence of bowel obstruction however there was a prominent amount of stool noted within the colon which suggested constipation. In addition; there was the presence of a 1.3 cm left adrenal nodule noted, a few upper normal-sized mesenteric lymph nodes within the right upper quadrant and probable tiny hepatic and right renal cyst. We will start a bowel regimen; MiraLAX 17 g daily, lactulose 30 mL twice daily, and milk of mag 30 cc by mouth as needed. 01/08-Nursing staff reports multiple bowel movements on yesterday and this morning. 01/09-no complaints of abdominal pain; multiple bowel movements overnight. 01/10-no significant overnight events. 01/11-no significant overnight events. Current Visit: Yes (2) Abnormal liver enzymes Status: Acute Assessment and plan: Liver enzymes were elevated at the time of admission; however no labs are available for comparison. Will order stat liver enzymes now and in a.m. 01/08-liver enzymes notably decreased from results on yesterday; a LT noted at 59 , alkaline phosphatase at 377, total protein 5.4, total bilirubin less than 0.39. On yesterday ALT was noted at 72, alkaline phosphatase at 411, and total bilirubin less than 0.39. Will recheck labs in a.m. 01/09-liver enzymes continue to improve, AST noted at 29, ALT at 5.1, alkaline phosphatase 371, total protein at 5.1, albumin at 1.9. We will continue to monitor. Will recheck labs in a.m. 01/10-ALT noted at 63, AST at 42, alkaline phosphatase at 418, total protein 5.5. We will monitor closely we will recheck in a.m. 01/11-ALT noted at 89, AST and 68, alkaline phosphatase at 4 8, total protein 6.1 we will continue to monitor recheck in a.m. Current Visit: Yes (3) Leukocytosis Status: Acute Assessment and plan: Blood cultures were obtained at the time of admission; results are pending. WBCs remain elevated at 24.5. Echocardiogram has been ordered to assess for endocarditis. HIV panel was benign. Empiric antibiotics have been started. We will continue as previously ordered however we will consult infectious disease to evaluate. In addition we will also obtain hepatitis panel for review. 01/08-seen by infectious disease on yesterday, agree with plan to hold empiric antibiotics for now. WBCs are trending down noted at 11.3 today; great improvement from yesterday which was noted at 20.3. We will continue to monitor. Hepatitis panel was essentially negative. 01/09-WBCs were noted at 12.3 today. No obvious signs of infection. We agree with infectious disease to hold empiric antibiotics for now. 01/10-WBCs normalized at 9.7 today. 01/11-white blood cell count noted 9.3 today Current Visit: Yes (4) Bipolar disorder Status: Acute Assessment and plan: The patient's condition has greatly improved. Her WBCs are normal. Her vital signs are stable. We will consult case management and request an [facility] evaluation for placement at discharge. 01/09-[place] is present on the unit. They will evaluate for possible placement at the time of discharge. 01/10-the patient was evaluated by [facility] on yesterday and deemed an appropriate for inpatient admission at this time. We will restart consult geriatric social work professor to assess available options for the patient for pending discharge. 01/11-case management has notified [facility] regarding possible placement. The status is unknown at this time. In addition case management has also submitted this patient for swing bed placement at multiple facilities, however we are awaiting notification of the acceptance. Current Visit: Yes Hospitalist: Subjective Interval history: Patient seen and examined; no significant overnight events. Remains on one-to- one observation for safety. Awaiting swing bed placement. Exam - Constitutional Vitals: Period Temp Pulse Resp BP Sys/[place] Pulse Ox Last 24 Hr 96.1 F-98 F 95-123 16-20 111-140/67-85 95-97 General appearance: normal weight, no acute distress - Head Head exam: Present: normocephalic - Eye Eye exam: Present: EOMI. Absent: conjunctival injection Pupils: Present: CARLI, normal accommodation - ENT ENT exam: Present: normal exam, normal external ear exam, normal oropharynx - Neck Neck exam: Present: normal inspection. Absent: lymphadenopathy, meningismus, tenderness, thyromegaly - Respiratory Respiratory exam: Present: clear to auscultation bilaterally. Absent: accessory muscle use, chest wall tenderness, decreased breath sounds, rales, rhonchi, stridor, wheezes - Cardiovascular Cardiovascular exam: Present: regular rate and rhythm. Absent: carotid bruit, diastolic murmur, gallop, JVD, rubs, systolic murmur - GI/Abdominal GI/Abdominal exam: Present: normal bowel sounds, soft. Absent: firm, tenderness - Extremities Exam Extremities exam: Present: normal inspection, normal capillary refill, full ROM. 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 She requested for Tylenol this am. Exam - Constitutional Vitals: Period Temp Pulse Resp BP Sys/[place] Pulse Ox Last 24 Hr 96.1 F-97.5 F 95-100 16-20 111-140/67-85 95-96 Results - Labs CBC & BMP: 01/11/17 07:20 01/11/17 07:20
[2017-01-11] MEDS: traMADol 50 MG TABLET PO PRN (17:35)
[2017-01-11] MEDS ORDERED: diphenhydrAMINE CAP 50 MG CAPSULE PO PRN (19:19)
[2017-01-11] MEDS: traZODone 50 MG TABLET PO SCH ×2 (19:30→20:29)
[2017-01-11] MEDS: LORazepam 1 MG TABLET PO PRN (21:54)
[2017-01-12] MEDS: traMADol 50 MG TABLET PO PRN ×3 (03:19→21:20)
[2017-01-12] MEDS: NICOTINE 21 MG/24 HR PATCH TRANSDERM SCH (12:12)
[2017-01-12] MEDS: LORazepam 1 MG TABLET PO PRN (14:43)
--- NOTE | 2017-01-12 16:23 | Hospitalist Progress Note ---
Assessment and Plan (1) Abdominal pain Status: Acute Assessment and plan: CT of abdomen and pelvic on admission suggested constipation. Pt. stable. No acute changes in condition. Pt. reports bowel movement this am. Current Visit: Yes (2) Bipolar disorder Status: Acute Assessment and plan: Pt. is stable. awaiting placement at facility. Current Visit: Yes (3) Leukocytosis Status: Acute Assessment and plan: Pt. stable today on 01/11 at 9.3 Will recheck in am. Current Visit: Yes Hospitalist: Subjective Interval history: Pt. seen and examined. No acute distress noted. Pt. denied any issues at this time. Pt. inquired about placement. We are still awaiting approval. Exam - Constitutional Vitals: Period Temp Pulse Resp BP Sys/[place] Pulse Ox Last 24 Hr 97.2 F-98.9 F 101-108 16-20 112-130/69-82 96-98 General appearance: no acute distress - Head Head exam: Present: normal inspection, normocephalic - Eye Eye exam: Present: EOMI Pupils: Present: CARLI - Respiratory Respiratory exam: Present: clear to auscultation bilaterally - Cardiovascular Cardiovascular exam: Present: regular rate and rhythm - GI/Abdominal GI/Abdominal exam: Present: normal bowel sounds, soft. Absent: tenderness - Extremities Exam Extremities exam: Present: normal capillary refill, full ROM. Absent: edema - Neurological Exam Neurological exam: Present: alert, altered - Psychiatric Psychiatric exam: Present: flat affect - Skin Skin exam: Present: normal color, warm, dry Results - Labs CBC & BMP: 01/11/17 07:20 01/11/17 07:20 Lab Results: I have reviewed the past 24 hour labs Quality Measures - Stroke Onset of Symptoms Date: 12/30/16
[2017-01-12] MEDS: ONDANSETRON 4 MG TABLET PO PRN (17:53)
[2017-01-12] MEDS: traZODone 50 MG TABLET PO SCH (21:20)
[2017-01-13 05:18] LABS: Basophils # 0.1 10*3/uL (0.0-0.2); Basophils % 0.4 % (0.0-0.8); Eosinophils # 0.5 10*3/uL (0.0-0.87); Eosinophils % 4.3 % (0.00-10.9); Hemoglobin 10.4 GM/DL (12.0-16.0); Immature Granulocytes % 0.4 %; Immature Granulocytes Absolute 0.04 #; Lymphocytes # 2.1 10*3/uL (1.4-4.0); Lymphocytes % 18.3 % (21.3-54.2); Mean Corpuscular HGB Conc 33.5 GM/DL (32-36); Mean Corpuscular Hemoglobin 30 PG (27-34); Mean Corpuscular Volume 89.1 FL (87-102); Mean Platelet Volume 9.3 FL (9.6-12.0); Monocytes # 1.7 10*3/uL (0.11-0.8); Monocytes % 14.8 % (1.7-12.7); Neutrophils % 61.8 % (38.7-73.9); Platelet Count 466 T/CUMM (130-400); Red Blood Count 3.48 MC/CUMM (3.8-5.5); Red Cell Distribution Width 15.1 % (9.3-17.3); White Blood Count 11.3 T/CUMM (4-12)
[2017-01-13 05:52] LABS: Calcium 8.3 MG/DL (8.5-10.1); Osmolality,Calculated 270.8 MOS/KG (273-304); Potassium 3.7 MMOL/L (3.5-5.1)
[2017-01-13 05:59] LABS: Magnesium 1.5 MG/DL (1.8-2.4)
[2017-01-13] MEDS: MAGNESIUM CHLORIDE 64 MG TABLET PO SCH ×2 (10:57→20:06)
[2017-01-13] MEDS: NICOTINE 21 MG/24 HR PATCH TRANSDERM SCH (10:57)
[2017-01-13] MEDS: ONDANSETRON 4 MG TABLET PO PRN ×2 (10:57→15:25)
--- NOTE | 2017-01-13 13:13 | Hospitalist Progress Note ---
<Geoff Bruno - Last Filed: 01/13/17 13:11> Assessment and Plan (1) Abdominal pain Status: Acute Assessment and plan: CT of abdomen and pelvic on admission suggested constipation. Pt. stable. No acute changes in condition. Pt. reports bowel movement this am. Current Visit: Yes (2) Bipolar disorder Status: Acute Assessment and plan: Pt. is stable. awaiting placement at facility. Current Visit: Yes (3) Leukocytosis Status: Acute Assessment and plan: Pt. stable today on 01/11 at 9.3 Will recheck in am. 01/13 WBC 11.3 Current Visit: Yes Hospitalist: Subjective Interval history: Pt. seen and examined. Chart reviewed. No acute changes noted. Sitter present with patient. Exam - Constitutional Vitals: Period Temp Pulse Resp BP Sys/[place] Pulse Ox Last 24 Hr 97.2 F-98.7 F 100-108 18-18 103-125/62-75 96-98 General appearance: no acute distress, over weight - Head Head exam: Present: normal inspection, normocephalic - Eye Eye exam: Present: EOMI Pupils: Present: CARLI. Absent: fixed - ENT ENT exam: Present: normal exam - Neck Neck exam: Present: normal inspection. Absent: thyromegaly - Respiratory Respiratory exam: Present: clear to auscultation bilaterally. Absent: accessory muscle use, wheezes - Cardiovascular Cardiovascular exam: Present: regular rate and rhythm. Absent: tachycardia - GI/Abdominal GI/Abdominal exam: Present: normal bowel sounds, tenderness, soft - Extremities Exam Extremities exam: Present: normal capillary refill, full ROM. Absent: edema - Neurological Exam Neurological exam: Present: alert, oriented X3 - Psychiatric Psychiatric exam: Present: normal affect, normal mood - Skin Skin exam: Present: normal color, warm, dry Results - Labs CBC & BMP: 01/13/17 04:55 01/13/17 04:55 Lab Results: I have reviewed the past 24 hour labs Quality Measures - Stroke Onset of Symptoms Date: 12/30/16 <Ro Zamarripa - Last Filed: 01/13/17 13:53> Hospitalist: Subjective Interval history: We will replete magnesium as well. Exam - Constitutional Vitals: Period Temp Pulse Resp BP Sys/[place] Pulse Ox Last 24 Hr 97.2 F-98.7 F 100-108 -18 103-125/62-75 96-98 Results - Labs CBC & BMP: 01/13/17 04:55 01/13/17 04:55
[2017-01-13] MEDS: LORazepam 1 MG TABLET PO PRN ×2 (14:27→20:06)
[2017-01-13] MEDS: traZODone 50 MG TABLET PO SCH (20:05)
[2017-01-13] MEDS: traMADol 50 MG TABLET PO PRN (20:06)
[2017-01-14 05:48] LABS: Basophils # 0.1 10*3/uL (0.0-0.2); Basophils % 0.5 % (0.0-0.8); Eosinophils # 0.5 10*3/uL (0.0-0.87); Eosinophils % 4.6 % (0.00-10.9); Hematocrit 34.2 VOL% (35.7-47.0); Hemoglobin 11.3 GM/DL (12.0-16.0); Immature Granulocytes % 0.4 %; Immature Granulocytes Absolute 0.04 #; Lymphocytes # 2.6 10*3/uL (1.4-4.0); Lymphocytes % 26.7 % (21.3-54.2); Mean Corpuscular Hemoglobin 29 PG (27-34); Mean Corpuscular Volume 88.6 FL (87-102); Mean Platelet Volume 9.8 FL (9.6-12.0); Monocytes # 1.4 10*3/uL (0.11-0.8); Monocytes % 13.7 % (1.7-12.7); Neutrophils # 5.4 10*3/uL (1.4-7.4); Neutrophils % 54.1 % (38.7-73.9); Platelet Count 510 T/CUMM (130-400); Red Blood Count 3.86 MC/CUMM (3.8-5.5); Red Cell Distribution Width 15.2 % (9.3-17.3); White Blood Count 9.9 T/CUMM (4-12)
[2017-01-14 06:22] LABS: Calcium 8.8 MG/DL (8.5-10.1); Magnesium 1.7 MG/DL (1.8-2.4); Osmolality,Calculated 269.8 MOS/KG (273-304); Potassium 4.1 MMOL/L (3.5-5.1)
[2017-01-14 06:35] LABS: Band Neutrophils 22 % (0-10); Eosinophils 1 % (0-10); Hypochromasia 1+; Lymphocytes 29 % (20-55); Microcytosis 1+; Platelet Estimate Increased; Segmented Neutrophils 36 % (50-85); Total Cells Counted 100
[2017-01-14] MEDS: NICOTINE 21 MG/24 HR PATCH TRANSDERM SCH (08:30)
[2017-01-14] MEDS: MAGNESIUM CHLORIDE 64 MG TABLET PO SCH ×2 (08:30→20:13)
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
[2017-01-14] MEDS: traMADol 50 MG TABLET PO PRN (13:21)
[2017-01-14] MEDS: traZODone 50 MG TABLET PO SCH (20:13)
[2017-01-14 21:21] VITALS: BP 141/77
== END 2017-01-14 21:27 ==
LOC: N.ED 17:57 → INTOOBSV 22:13 → N.EDINP 22:13 → SUATTDRO 22:13 → N.5E 22:37
PROVIDERS: ADMIT Internal Medicine Infectious Disease; ATTEND Internal Medicine